=== PATIENT | female | born 1985 | race Hispanic/Latino ===

== ENCOUNTER 2016-05-15 18:42 | Emergency (ER) | payer OTHER ==
[2016-05-15 18:48] VITALS: BP 119/81; PULSE 71; RESP 16; O2SAT 100
[2016-05-15 20:08] LABS: Mean Corpuscular Hemoglobin 30.9 pg (27.0-35.0); Mean Corpuscular Volume 91.7 fL (81-100)
[2016-05-15 21:23] LABS: APPEARANCE,URINE CLEAR (CLEAR,HAZY); COLOR,URINE YELLOW (YELLOW); OCCULT BLOOD,URINE MODERATE (NEGATIVE); UROBILINOGEN,URINE NORMAL (NORMAL)
--- NOTE | 2016-05-16 00:08 | ED.REPORT ---
HPI-Abd Pain F Under 40 Date of Service May 15, 2016 ED Provider: Victor M Horn DO 30yoF somali speaking with no prior presents at a reported 6wks with 5 hours of abdominal pain with vaginal bleeding. The patient states that the bleeding and pain occurred at approximately the same time 17:30 on 05/15/2016. The pain is described as cramping colic in nature rated 8 out of 10 and beginning in the flanks bilaterally and radiating into her anterior lower abdomen and pelvis. The blood is described as light flow. She was seen for her first visit today at [facility] where she was told her was 6 weeks and given vitamins and scheduled for follow up on June 12. The patient denies fever chills, diarrhea or constipation, pain on urination, or increased frequency or urgency for urination. The patient has no reported history of prior STD. Her LMP was on April 02, 2016. Nursing Notes Stated Complaint: 6WKS PREG, VAGINAL BLEEDING Chief Complaint: & Delivery Nursing Notes Reviewed: Yes Allergies: Coded Allergies: No Known Allergies (Verified Allergy, Unknown, 07/30/14) No Active Prescriptions or Reported Meds General Time Seen by MD: 22:00 Chief Complaint Abdominal pain, , 1st trimester, Vaginal bleeding Hx Obtained From: Patient Arrived By: Walk-in Sudden in Onset?: Yes Onset Occurred: 5 - 8 hours ago Symptom Duration: Since onset Progression since Onset: Waxes and wanes, Gradually worsening Location: : Flank left: Flank right Quality: Cramping Radiation: : Abdomen lower Severity: Current: Pain level 8 out of 10 Severity: Maximum: Pain level 8 out of 10 Recent Healthcare: No recent hospitalization, Recent doctor visit Similar Sx Previous: No Risk Factors Ectopic Risk Stratification Risk factors reviewed Past Medical History [facility]: [facility] Past Medical History Tuberculosis - 2012, treated with medication Salmonella Past Surgical History None Family History Noncontributory Smoking History Never Smoker Social History Alcohol Use: Denies alcohol use Drug Use: Denies drug use Other Social History: Good social support, Local resident Ambulatory Status Independent Review of Systems Basic Review of Systems Eyes: Vision NL, No discharge ENT: Hearing NL, No pain, No nasal congestion, No pharyngeal pain Hematologic: No bruising Skin: No bruising, No rash, No itch Allergy / Immune: No allergy Neurologic: NL mental status, No weakness, No numbness Psychiatric: Normal thought content Constitutional: Denies: Chills, Fever Respiratory: Denies: Dyspnea on exertion, Non-productive cough, Pleuritic pain Cardiovascular: Denies: Chest pain, Edema, Palpitations GI: Reports: Abdominal pain, Nausea, Denies: Bloody/tarry stool, Constipation, Diarrhea, Hematemesis, Hematochezia , Vomiting Female: Reports: , Vaginal bleeding - abnl, Denies: Dysuria, Hematuria, Urinary frequency, Urinary urgency, Vaginal discharge Musculoskeletal: Denies: Extremity swelling Complete sys rev & neg: except as marked. Physical Exam Initial Vital Signs Vital Signs (First) Date Time Temp Pulse Resp B/P Pulse Ox O2 Delivery O2 Flow Rate FiO2 05/15/16 18:48 36.2 71 16 119/81 100 Room Air Initial VS: Reviewed Head / Eyes: Atraumatic, Normocephalic, PERRL ENT: Mucous membranes moist, Conjunctiva normal, No scleral icterus Neck: Supple, Non-tender, Full range of motion Lymphatic: No lymphadenopathy Extremities: Vascular intact, Neuro intact, No swelling, No tenderness Skin: Warm, Dry, No cyanosis Neurologic: Alert, Oriented, Nonfocal Psychiatric: Mood/affect normal, Behavior normal, Normal thought content General/Constitutional: Awake, Alert, No acute distress, Well appearing, Well nourished, Cooperative, Not toxic appearing Respiratory / Chest: Breath sounds NL, Breath sounds = bilat, No respiratory distress, No rales, No rhonchi, No wheezing Cardiovascular: Heart rate NL, Regular rhythm, Heart sounds NL, Peripheral circulation NL Abdomen: Atraumatic, Soft, No guarding, No rebound, BS normoactive, No pulsatile mass Tenderness/Guarding/Rebound: Positive: Tender diffuse, Negative: Nino's sign positive, Tender flank L, Tender flank R Organomegaly / Mass / Hernia: Negative: Hepatomegaly, Splenomegaly Back: Inspection NL, Non-tender, No CVA tenderness Head / Eyes: Normocephalic, PERRL Skin: Color NL, Warm, Dry Interpretation & Diagnostics Lab Results Interpretation Result Diagram: 05/15/167 Test 05/15/16 19:37 05/15/16 19:54 05/15/16 20:11 White Blood Count 10.3th/mm3 (3.8-10.1) Red Blood Count 4.60mil/mm3 (3.90-5.20) Hemoglobin 14.2g/dL (12.0-15.6) Hematocrit 42.2% (35.0-46.0) Mean Corpuscular Volume 91.7fL (81-100) Mean Corpuscular Hemoglobin 30.9pg (27.0-35.0) Mean Corpuscular Hemoglobin Concent 33.6% (32.0-37.0) Red Cell Distribution Width 13.6% (12.3-15.4) Platelet Count 291bil/L (150-400) HCG Beta Subunit [id number]/mL Hold Day Top Tube Received (Received) Urine Color Yellow (YELLOW) Urine Appearance Clear (CLEAR,HAZY) Urine pH 7.0 (5.0-8.0) Urine Specific [place] 1.020 (1.003-1.035) Urine Protein Negativemg/dL (NEG,TRACE) Urine Glucose (UA) Negativemg/dL (NEGATIVE) Urine Ketones Negativemg/dL (NEGATIVE) Urine Occult Blood Moderate (NEGATIVE) Urine Nitrite Negative (NEGATIVE) Urine Bilirubin Negative (NEGATIVE) Urine Urobilinogen Normalmg/dL (NORMAL) Urine Leukocyte Esterase Small (NEGATIVE) Urine RBC 11-50/hpf (0-2) Urine WBC 11-50/hpf (0-5) Urine Epithelial Cells Many/hpf (NONE-MOD) Urine Crystals None seen (NONE SEEN) Urine Bacteria Few/hpf (NONE-FEW) Urine Hyaline Casts None/lpf (NONE) Urine Granular Casts None seen (NONE SEEN) Urine Waxy Casts None seen (NONE SEEN) Urine Red Blood Cell Casts None seen (NONE SEEN) Urine White Blood Cell Casts None seen (NONE SEEN) Urine Mucus None seen (None Seen) Urine Trichomonas None seen (NONE SEEN) Urine Yeast None (NONE SEEN) Urinalysis Comment None Urine Culture Reflexed Indicated US Focused OB Single live intrauterine at 6wks. Small subchorionic hemorrhage and probable small corpus luteum cyst measuring 2.4cm in right ovary Exam Performed by: Radiologist Exam Type: Diagnostic Exam Interpreted by: Radiologist Indication: Quant hCG positive, Abdominal pain, Vaginal bleeding Interpretation: Live intrauterine preg, Simple ovarian cyst Re-Eval/Medical Decision Med Decision/Clinical Course Med Decision/Clinical Course: 30yoF currently 6 weeks presents with BL flank pain radiating into her lower abdomen with vaginal bleeding. US showed an intrauterine 6wks with a corpus luteum cyst in the right ovary as well as a small bleed located near the gestational sac. Threatened v inevitable misscarriage. pt is Rh positive so no coverage with Rhogam required. . Patient to follow up with Dr. Leal in the next week. Counseled Regarding: Diagnosis, Lab results, Need for follow-up, When/why to return to ED Discharge & Departure Primary Impression: Threatened in first trimester Additional Impressions: Ovarian cyst Laterality: unspecified laterality Qualified Code: N83.20 - Unspecified ovarian cysts Hemorrhage affecting in first trimester Ruled Out: Ectopic Disposition: Home Discharge Condition All VS Reviewed: Yes Condition: Stable Patient Instructions: Threatened Miscarriage (ED) Additional Instructions: During you visit to [facility] Emergency Department we obtained blood work for infectious markers, hemoglobin levels, as well as hormones. You are Rh positive, so you will need no prophylactic coverage for complications from exposure to possible blood. We obtained high resolution US imaging abdomen and pelvis which showed a intrauterine at 6wks with a small subchorionic hemorrhage near the gestational sac as well as ovarian cyst. Your pain may be explained by a ruptured ovarian cyst. The blood is intrauterine which is consistent with a threatened . Included is educational material on threatened abortions. Unfortunately we will not be able to tell you today if your is inevitable. You will need to follow up with your physician at [facility] Dr. Leal for further follow up. Your vital signs were stable and safe for discharge. You should take Tylenol for your abdominal pain. You should have no sexual intercourse, nothing inside your vagina until seen and cleared by your [facility] provider Dr. Leal. Do not hesitate to call emergency services or your primary care physician if you experience worsening of your current symptoms or any of the following. - High unrelenting fevers. - severe vaginal bleeding defined as soaking through a panty liner pad every hour for more than 2 straight hours - Uncontrolled vomiting. - Severe hypotension. - Dizziness or loss of consciousness. - Chest pain or severe shortness of breath. Please call your [facility] physician Dr. Leal tomorrow and schedule an ED follow up within the next week following your emergency department visit for checks and general well-being. Johan corona visita al [facility] [place] obtuvimos anlisis de nia para marcadores infecciosos, niveles de hemoglobina, as shelby hormonas del embarazo. Usted es Rh positivo, por lo que no necesitar cobertura profilctica para las complicaciones de la exposicin a la posible nia . Hemos obtenido imgenes de marylin resolucin en el abdomen y la pelvis de [place], que mostraron un embarazo intrauterino a [address] pequea hemorragia subcoriolgica cerca del saco gestacional, as shelby un quiste ov rico. Corona dolor puede ser explicado por un quiste ovrico roto. La nia es intrauterina que es consistente con un aborto amenazado. Se incluye material educativo sobre abortos amenazados. Lamentablemente no podremos decirle hoy si corona aborto es inevitable. Tendr que hacer un seguimiento con corona mdico en Kaylen Leal para ms seguimiento. Yandy signos vitales zaynab estables y seguros para el marylin. Usted debe evaristo Tylenol para corona dolor abdominal. Usted no debe tener relaciones sexuales, nada dentro de corona vagina hasta que haya sido visto y aprobado por corona proveedor de [place], el Dr. Leal. No dude en llamar a los servicios de emergencia o corona mdico de atencin primaria si experimenta empeoramiento de yandy sntomas actuales o cualquiera de los siguientes. - Fiebres implacables y elevadas. - hemorragia vaginal severa definida shelby remojo a travs de lane almohadilla del forro de panty cada hora johan ms de 2 horas seguidas - Vmitos incontrolados. - Hipotensin severa. - Mareo o prdida del conocimiento. - Dolor en el pecho o falta de aire severa. Por favor llame a corona mdico de Kaylen, Dr. Leal, marcelaana y programe un seguimiento de la [place] en la siguiente semana despus de corona visita al departamento de emergencias para chequeos de Referrals: Vania Leal MD (PCP) Attending Statment I personally took a history of performed a physical examination. I reviewed the data. I reviewed the note above. I concur with the note, assessment and plan. copies to: Vania Leal MD, Nicholas K DO May 15, 2016 22:36 Victor M Horn DO May 16, 2016 18:34
[2016-05-16 00:27] VITALS: BP 104/66; PULSE 74; RESP 18; O2SAT 100
--- NOTE | 2016-05-16 09:06 | DRSVH ---
PROCEDURE: US OB<14 WKS+OB TRANSVAG INDICATIONS: 6wks possible ectopic OUTSIDE/PRIOR DATING DATA: Last menstrual period (LMP): Unknown. LMP-based estimated date of delivery (LENKA): Unknown. First dating scan (date and location): 05/15/16. Estimated date of delivery (LENKA) from first dating scan: 01/08/17. TECHNIQUE: Real-time scanning was performed of the fetus and maternal pelvic organs, with image documentation. Endovaginal scanning was also performed to better visualize the fetus and maternal ovaries. COMPARISON: None. FINDINGS: Embryo: Single intrauterine is identified with heart rate of 109 beats per minute. Cr own-rump length measures 4 mm corresponding to 6 weeks zero days. It is noted that there is a small p jessica-gestational bleed measuring 15 x 4 x 13 mm. Measurement variability in dating: +/- 4 weeks by LMP, +/- 7 days by mean sac diameter (use before 6 weeks gestation if crown-rump length not able to be measured), +/- 5 days by crown-rump length (6-12 weeks gestation). Maternal organs: Ovaries demonstrate a liquids corpus luteal cyst on the right measuring approximate ly 24 x 24 x 28 mm.. Limited images through the kidneys demonstrate no hydronephrosis. IMPRESSION: 1. Single intrauterine with a gestational age of 6 weeks 0 days corresponding to an ultraso und LENKA of 01/08/17. 2. Small loco-gestational sac bleed. Recommend interval ultrasound followup as recommended. 3. Recommend interval followup imaging at 20-22 weeks for dates and anatomy. Dictated by: Yojana Mathew M.D. on 05/16/2016 at 9:01 Approved by: Yojana Mathew M.D. on 05/16/2016 at 9:04
== END 2016-05-16 00:29 | disposition home or self-care (01) ==
LOC: SED 18:42
DX: O20.0 Threatened abortion (principal); O34.81 Maternal care for other abnormalities of pelvic organs, first trimester; N83.201 Unspecified ovarian cyst, right side; Z3A.01 Less than 8 weeks gestation of pregnancy